=== PATIENT | female | born 1990 | race Caucasian/White ===

== ENCOUNTER 2023-01-27 19:37 | Observation (INO) | payer MEDICAID ==
[~2023-01-27] VITALS: Ht 162.6 cm; Wt 108.9 kg
[2023-01-27] MEDS ORDERED: PNV (21:01)
== END 2023-01-27 21:08 | disposition home or self-care (01) ==
LOC: 8 EST LDRP 19:37
PROVIDERS: ADMIT Obstetrics & Gynecology; ATTEND Obstetrics & Gynecology
DX: O26.893 Other specified pregnancy related conditions, third trimester (principal); R10.9 Unspecified abdominal pain; O62.9 Abnormality of forces of labor, unspecified; O48.0 Post-term pregnancy; Z3A.40 40 weeks gestation of pregnancy
CPT/HCPCS: 59025; 99281; G0378